=== PATIENT | male | born 1940 | race Caucasian/White ===

== ENCOUNTER → 2021-05-11 | Outpatient (CLI) | payer OTHER ==
[~2021-05-11] MED LIST: ACID REDUCER20 MG PO; AMITRIPTYLINE H25 M2 PO; ASA81BEC PO; CATAPRES-TTS 20.2 MG TRANSDERM; COZAAR100 MG PO; FLOMAX0.4 MG PO; HYDROCHLOROTHIA25 M1 PO; METFORMIN HCL500 M3 PO; MUCUS RELIEF400 MG PO; NORVASC10 MG PO; OZEMPIC1 MG/0.71 SUBQ; PENTOXIFYLLINE400 MG PO; PRAVASTATIN SOD80 MG PO; PRESERVISION A1 EACH PO; TIMOLOL MALEATE5 M2 OPHTHALMIC; TYLENOL325 MG PO; VOLTAREN ARTHRI20 GM TOP; XALATAN2.5 M1 OPHTHALMIC
--- NOTE | 2021-05-11 12:37 | EKG ---
[address] [email or web address] [address] ELECTROCARDIOGRAM REPORT Name: KRYS FOOTE [id number] Admission: 05/11/21 Attend Phys: Simone Lama MD Discharge: Date of : 44 Report #: [id number] [facility] Test Date: 2021-05-11 Test Time: 11:49:21 Pat Name: KRYS FOOTE Department: Room: Gender: Physician/Ophthalmologist: Rubi MCGRATH : 1940 Requested By: Simone Lama Order Number: [id number] : Kobi Gallagher Measurements Intervals Spurgeon Rate: 61 P: 0 MD: 174 QRS: -10 QRSD: 95 T: 50 QT: 414 QTc: 417 Interpretive Statements Sinus rhythm Anteroseptal infarct, old No previous ECG available for comparison Electronically Signed On 05-11-2021 12:37:11 CDT by Kobi Gallagher [email or web address] <ELECTRONICALLY SIGNED> By: Kobi Gallagher MD, [facility] 05/11/21 1237 1149 1149 Kobi Gallagher MD, FACC /EPI
[2021-05-11 12:42] LABS: HEMATOCRIT 36.6 % (42.0-52.0); HEMOGLOBIN 12.1 gm/dL (14.0-18.0); MCH 29.9 pg (26.0-34.0); MCHC 33.1 g/dL (28.0-37.0); MCV 90.1 fL (80.0-100.0); RBC 4.06 mil/uL (4.50-6.00); RDW 14.1 % (10.5-14.5); WBC 4.7 thou/uL (4.0-11.0)
[2021-05-11 12:43] LABS: URINE BILIRUBIN NEGATIVE (Negative); URINE BLOOD NEGATIVE (Negative); URINE CLARITY CLEAR; URINE COLOR YELLOW; URINE GLUCOSE-RANDOM* NEGATIVE (Negative); URINE KETONES NEGATIVE (Negative); URINE LEUKOCYTES-REFLEX NEGATIVE (Negative); URINE NITRITE-REFLEX NEGATIVE (Negative); URINE PROTEIN (DIPSTICK) NEGATIVE (Negative); URINE SPECIFIC GRAVITY 1.015 (1.005-1.035); URINE UROBILINOGEN 0.2 E.U./dl (0.2-1.0)
[2021-05-11 12:59] LABS: INR 0.94; PROTIME 10.3 Seconds (10.5-12.1)
[2021-05-11 13:00] LABS: ALBUMIN 3.6 g/dL (3.4-5.0); CALCIUM 8.7 mg/dL (8.5-10.1); CREATININE 0.9 mg/dL (0.7-1.3); POTASSIUM 4.1 mmol/L (3.5-5.1)
[2021-05-12 04:06] LABS: GLYCOHEMOGLOBIN (HGB A1C) 6.9 % (4.8-5.6)
== END ==
LOC: PAC 10:46
PROVIDERS: ATTEND Orthopaedic Surgery
DX: Z01.818 Encounter for other preprocedural examination (principal); M17.12 Unilateral primary osteoarthritis, left knee; I25.2 Old myocardial infarction

== ENCOUNTER 2021-05-25 10:12 | Observation (INO) | payer OTHER ==
[~2021-05-25] VITALS: Ht 180.3 cm; Wt 79.4 kg
[2021-05-25 11:33] VITALS: BP 165/66
[2021-05-25 16:00] VITALS: BP 162/69
[2021-05-25 17:00] VITALS: BP 165/73
--- NOTE | 2021-05-25 18:30 | NUR ---
PT RECEIVED FROM REC RM AT 1600 ALERT AND IN NO ACUTE DISTRESS. DSNG DRY AND INTACT. TEDS,SCD AND POLAR MARIAN IN PLACE. PT EATING AND DRINKING VERY WELL. DENIES PAIN AND HAS FULL FEELING IN TOES. NOT ABLE TO URINATE YET BUT WILL TRY AFTER TAKING FLOMAX.
[2021-05-25 19:10] VITALS: BP 159/78
--- NOTE | 2021-05-26 03:33 | NUR ---
ASSESSED AT START OF SHIFT. PT DENIES PAIN, N/V ON ASSESSMENT. FLOMAX GIVEN AND PT WAS ABLE TO VOID. IV INTACT AND FLUIDS INFUSING. ON 2L OF O2. IS ENCOURAGED. FALL PREC IN PLACE AND CALL LIGHT AT REACH WILL CONT TO MONITOR.
[2021-05-26 04:19] VITALS: BP 137/67
[2021-05-26 07:14] VITALS: BP 167/68
[2021-05-26 10:42] LABS: HEMATOCRIT 35.4 % (42.0-52.0); HEMOGLOBIN 11.4 gm/dL (14.0-18.0); MCH 29.3 pg (26.0-34.0); MCHC 32.2 g/dL (28.0-37.0); MCV 90.9 fL (80.0-100.0); RBC 3.9 mil/uL (4.50-6.00); RDW 14.2 % (10.5-14.5); WBC 9.4 thou/uL (4.0-11.0)
--- NOTE | 2021-05-26 11:07 | NUR ---
Met with patient who reports he resides at home with . All needs on one level in home. [facility]. 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 He needs walker for dc. Message to [facility] to deliver walker today. Spoke with therapy recommends walker for home and outpatient therapy. No further needs.
[2021-05-26 14:45] VITALS: BP 167/68
--- NOTE | 2021-05-31 13:24 | O ---
[facility] [place] [address] OPERATIVE REPORT Name: KRYS FOOTE Room #: 444-P [facility] Trisha Viera#: [id number] Admission: 05/25/21 Attend Phys: Simone Lama MD Discharge: 05/26/21 Date of : 44 Report #: [id number] THIS REPORT FOR: cc: DEN DUFF Physician not on staff Simone Lama MD ~ DATE OF SERVICE: 05/25/2021 PREOPERATIVE DIAGNOSIS: Left knee osteoarthritis. POSTOPERATIVE DIAGNOSIS: Left knee osteoarthritis. PROCEDURE: Left total knee arthroplasty using Navio robotic assistance. SURGEON: Simone Lama MD. ANCILLARY SERVICES MANAGER: Radha Bowers PA-C. INDICATION FOR ANCILLARY SERVICES MANAGER: Throughout the case, extensive retraction and manipulation of the knee was required. This was afforded to me by my social service assistant. ANESTHESIA: LMA with adductor canal block. IMPLANTS: A [employer] size 6 cobalt chrome Journey II BCS femur, size 6 tibia, size 10 constrained polyethylene, size 32 patella. TOURNIQUET TIME: 53 minutes. ESTIMATED BLOOD LOSS: 25 mL. COMPLICATIONS: None. SPECIMENS: None. CONDITION UPON LEAVING THE OR: Stable. INDICATIONS FOR PROCEDURE: The patient is a 81-year-old gentleman with severe left knee osteoarthritis. He had failed conservative measures for this and after discussion with him, he elected for left total knee arthroplasty. DESCRIPTION OF PROCEDURE: Risks, benefits, alternatives, complications were discussed in detail with the patient including but not limited to risk of anesthesia, risk of damage to nerves, arteries, blood vessels, risk for infection, bleeding, risk for continued knee pain, need for reoperation. Informed consent was obtained from the patient. Left knee was appropriately marked in the preoperative holding area. IV Ancef was given for preoperative [address] [address] OPERATIVE REPORT Name: QAMARKRYS Room #: 444-P TADEO Viera#: [id number] Admission: 05/25/21 Attend Phys: Simone Lama MD Discharge: 05/26/21 Date of : 44 Report #: [id number] antibiotics. Adductor canal block was placed by Anesthesia, was brought to the operating room and placed in supine position on the operating table. LMA anesthesia was induced without complication. Tourniquet was placed on the left thigh. Left lower extremity was prepped and draped in normal sterile fashion. Timeout was performed properly identifying the patient and procedure as well as the instrumentation and implants. All in the operating room in agreement. Left lower extremity was exsanguinated, tourniquet was inflated. Tourniquet time was 53 minutes. Standard midline approach to the knee was made with 10 blade through the skin. Dissection was taken down sharply to the fascia and deep flaps were developed medially and laterally. Fresh 10 blade was used to make a medial parapatellar arthrotomy and the knee was inspected. There was severe lateral compartment osteoarthritis with moderate medial and patellofemoral compartment osteoarthritis. ACL and PCL were removed sharply. Reference pins were placed in the femur and the tibia. The knee was digitally mapped using the Tempo AI robotic system. Intraoperative plan was made. We sized the size 6 femur with a size 6 tibia and a 10 spacer. After acceptance of the intraoperative plan, the distal femoral cut was made with Navio bur. Distal femoral cutting block was pinned in place and chamfer cuts were made. Attention was turned to the tibia. Remainder of the menisci removed with Bovie cautery. Tibial resection guide was pinned in place using Navio for placement and tibial resection was made. Flexion and extension gaps were then checked and found to have good balance in flexion and extension both medially and laterally. Tibia sized, found to be a size 6. Size 6 tibial trial was placed and punched. Size 6 femoral trial was placed and the box cut was made. This was then trialed with a size 9 and then a size 10 polyethylene. Size 10 polyethylene demonstrated 1-2 mm of laxity laterally throughout range of motion of the knee with up to 3 mm medially. It was felt we can make up for this with a constrained implant, 9 mm of bone was resected from the posterior surface of the patella and a size 32 patellar trial button was placed, knee was taken through range of motion, found to be stable, found to have good patellar tracking. Trial components were removed. Bone ends were thoroughly irrigated with normal saline. A final size 6 tibia, size 6 Journey II BCS cobalt chrome femur and a size 32 patella were cemented into place using standard cementation techniques. While the cement cured, a periarticular injection consisting of morphine, ropivacaine, epinephrine, Toradol was placed around the knee joint capsule. After the cement cured, tourniquet was deflated. Hemostasis was obtained with Bovie cautery. Final size 10 constrained polyethylene was placed. A gram of vancomycin was placed deep in the joint. Fascia was closed with 0 Vicryl. Skin was closed with 2-0 Vicryl, skin staple and a BLU dressing was applied. The patient tolerated this procedure well and went to the recovery room under the care of Anesthesia postoperatively. <ELECTRONICALLY SIGNED> By: Simone Lama MD 05/31/21 1324 1601 1708 Simone Lama MD /nt
== END 2021-05-26 15:58 | disposition home or self-care (01) ==
LOC: OR → TBA 10:16 → OR 11:27 → 4S 15:38 → OR 15:39 → 4S 15:39 → OR 16:11 → 4S 05-26 15:58
PROVIDERS: Hospitalist; ADMIT Orthopaedic Surgery; ATTEND Orthopaedic Surgery
DX: M17.12 Unilateral primary osteoarthritis, left knee (principal); Z20.822 Contact with and (suspected) exposure to COVID-19; E11.9 Type 2 diabetes mellitus without complications; I10 Essential (primary) hypertension; E78.5 Hyperlipidemia, unspecified; Z79.899 Other long term (current) drug therapy
CPT/HCPCS: 50010; 50101; 50415; 50954; 51130; 51225; 51320; 51412; 53000; 53078; 56527; 56528; 57095; 57103; 57110; 57127; 57180; 58239; 62110; 62900; 64039; 70005